=== PATIENT | female | born 1965 | race Caucasian/White ===

== ENCOUNTER 2024-03-10 17:43 | Emergency (ER) | payer OTHER ==
[~2024-03-10] VITALS: Ht 167.6 cm; Wt 145.2 kg
[2024-03-10 18:31] LABS: BASOPHILS PERCENT AUTO 1 % (0-2); EOSINOPHILS ABSOLUTE AUTO 0.29 K/mm3 (0.00-0.68); EOSINOPHILS PERCENT AUTO 3 % (0-6); Hematocrit 34.4 % (33.0-51.0); Hemoglobin 11.5 g/dL (11.5-16.0); IMMATURE GRAN ABSOLUTE AUTO 0.05 K/mm3 (0.00-0.10); IMMATURE GRAN PERCENT AUTO 0 % (0-1); LYMPHOCYTES ABSOLUTE AUTO 2.48 K/mm3 (0.84-5.20); LYMPHOCYTES PERCENT AUTO 22 % (21-46); MONOCYTES ABSOLUTE AUTO 0.92 K/mm3 (0.16-1.47); MONOCYTES PERCENT AUTO 8 % (4-13); Mean Corpuscular HGB 33.4 pg (26.0-34.0); Mean Corpuscular HGB Conc 33.4 g/dL (31.5-36.5); Mean Corpuscular Volume 100 fL (80-100); Mean Platelet Volume 9.7 fL (9.1-12.4); NEUTROPHILS ABSOLUTE AUTO 7.58 K/mm3 (1.96-9.15); NEUTROPHILS PERCENT AUTO 66 % (41-73); Platelet Count 380 K/mm3 (150-400); RDW Coefficient Variation 14.5 % (11.7-14.2); RDW Standard Deviation 52.7 fL (35.1-46.3); Red Blood Cell Count 3.44 M/mm3 (3.80-5.20); White Blood Cell Count 11.42 K/mm3 (4.00-11.30)
[2024-03-10 19:11] LABS: Source, Urine Clean Catch
[2024-03-10 19:14] LABS: Appearance, Urine Hazy (Clear); Blood, Urine 1+ (Neg); Color, Urine Amber (P-Yellow); Glucose Qualitative, Urine Neg (Neg); Ketones, Urine 1+ (Neg); Leukocyte Esterase, Urine 2+ (Neg); Nitrite, Urine Pos (Neg); Protein, Urine 2+ (Neg); Specific Gravity, Urine 1.015 (1.003-1.022); Urobilinogen, Urine 3+ (Normal)
[2024-03-10 19:21] LABS: Albumin, Blood 2.7 g/dL (3.4-5.0); Albumin/Globulin Ratio 0.5 (0.8-1.8); Bilirubin, Total 6.2 mg/dL (0.1-1.0); Bun/Creatinine Ratio 13.5 (12.0-20.0); Creatinine, Blood 0.81 mg/dL (0.40-1.00); Globulin, Blood 5.4 g/dL (2.2-4.0); Potassium, Blood 4.1 mmol/L (3.5-5.5); Total Protein, Blood 8.1 g/dL (6.4-8.2)
[2024-03-10 19:25] LABS: Bilirubin, Urine 3+ (Neg)
[2024-03-10 19:26] LABS: Amorphous Light (0-Heavy); Bacteria Many /hpf; Hyaline Casts 0-2 /lpf (0-2); Squamous Epithelial Cells Few /hpf (Few)
[2024-03-10] MEDS ORDERED: CefTRIAXone Sodium 2,000 MG in NS 50 ML IV ONE (23:20)
[2024-03-10] MEDS ORDERED: CEPH500 PO (23:22)
== END 2024-03-10 23:50 | disposition home or self-care (01) ==
LOC: ER 17:43
PROVIDERS: Student in an Organized Health Care Education/Training Program
DX: N39.0 Urinary tract infection, site not specified (principal); C24.9 Malignant neoplasm of biliary tract, unspecified
CPT/HCPCS: 80053; 81001; 85025; 87086; 93005; 93010; 96374; 99283-25; J0696

== ENCOUNTER 2025-01-22 09:58 | Emergency (ER) | payer OTHER ==
[~2025-01-22] VITALS: Ht 167.6 cm; Wt 127.0 kg
[~2025-01-22 09:58] MED LIST: CEPH500 PO
[2025-01-22] MEDS ORDERED: Ondansetron HCl 2 MG / ML 2ML Vial IV ONE (10:05)
[2025-01-22] MEDS ORDERED: NS 1,000 ML IV SCH (10:05)
[2025-01-22] MEDS ORDERED: HYDROmorphone HCl/Pf 1MG SYR IV PRN ×4 (10:20→22:35)
[2025-01-22 11:19] LABS: Alanine Aminotransfer (ALT/SGP 112.0 U/L (12-78); Albumin, Blood 2.9 g/dL (3.4-5.0); Albumin/Globulin Ratio 0.6 (0.8-1.8); Anion Gap 12.0 mmol/L (3-11); Aspartate Aminotrans (AST/SGOT 48.0 U/L (12-37); Bilirubin, Total 6.3 mg/dL (0.1-1.0); Blood Urea Nitrogen 22.0 mg/dL (8-24); CO2, Blood 22.0 mmol/L (21-32); Calcium, Blood 10.7 mg/dL (8.5-10.1); Chloride, Blood 104.0 mmol/L (98-108); Creatinine, Blood 0.9 mg/dL (0.40-1.00); Globulin, Blood 4.5 g/dL (2.2-4.0); Glucose, Blood 156.0 mg/dL (70-99); Potassium, Blood 3.5 mmol/L (3.5-5.5); Sodium, Blood 134.0 mmol/L (136-145); Total Protein, Blood 7.4 g/dL (6.4-8.2)
[2025-01-22 12:04] LABS: BASOPHILS ABSOLUTE AUTO 0.04 K/mm3 (0.00-0.23); BASOPHILS PERCENT AUTO 0 % (0-2); EOSINOPHILS ABSOLUTE AUTO 0.04 K/mm3 (0.00-0.68); EOSINOPHILS PERCENT AUTO 0 % (0-6); Hematocrit 33.3 % (33.0-51.0); Hemoglobin 10.7 g/dL (11.5-16.0); IMMATURE GRAN ABSOLUTE AUTO 0.47 K/mm3 (0.00-0.10); IMMATURE GRAN PERCENT AUTO 2 % (0-1); LYMPHOCYTES ABSOLUTE AUTO 3.44 K/mm3 (0.84-5.20); LYMPHOCYTES PERCENT AUTO 17 % (21-46); MONOCYTES ABSOLUTE AUTO 1.30 K/mm3 (0.16-1.47); MONOCYTES PERCENT AUTO 6 % (4-13); Mean Corpuscular HGB Conc 32.1 g/dL (31.5-36.5); Mean Corpuscular Volume 103 fL (80-100); NEUTROPHILS ABSOLUTE AUTO 15.16 K/mm3 (1.96-9.15); NEUTROPHILS PERCENT AUTO 74 % (41-73); NRBC ABSOLUTE 0.00 K/mm3 (0.00-0.02); NRBC Auto 0.0 /100 WBC (0.0-0.2); Platelet Count 334 K/mm3 (150-400); RDW Coefficient Variation 15.3 % (11.7-14.2); RDW Standard Deviation 57.7 fL (35.1-46.3)
[2025-01-22] MEDS ORDERED: MetroNIDAZOLE 500MG/NS 100 ml 100 ML IV ONE (12:30)
[2025-01-22] MEDS ORDERED: CefTRIAXone Sodium 2,000 MG in NS 100 ML IV ONE (12:30)
[2025-01-22 14:50] LABS: pH Blood Venous 7.30 (7.34-7.37)
[2025-01-22 17:45] LABS: Prothrombin Time Results 15.3 Sec (9.7-11.5)
[2025-01-22] MEDS ORDERED: Piperacillin/Tazobactam Sod 3.375 GM in NS 100 ML IV SCH (18:00)
[2025-01-22 22:24] LABS: Influenza A, PCR NEGATIVE (NEGATIVE); Influenza B, PCR NEGATIVE (NEGATIVE); Resp Syncytial Virus, PCR NEGATIVE (NEGATIVE); SARS-Cov-2 (COVID-19) PCR, MMC NEGATIVE (NEGATIVE)
[2025-01-22 23:14] VITALS: BP 172/100
[2025-01-22 23:25] VITALS: BP 172/100
[2025-01-22 23:31] VITALS: BP 172/100
[2025-01-22 23:36] VITALS: BP 172/100
[2025-01-23 02:18] VITALS: BP 172/100
== END 2025-01-23 01:27 | disposition short-term general hospital (02) ==
LOC: ER 09:58
PROVIDERS: Emergency Medicine
DX: K81.0 Acute cholecystitis (principal); K82.A1 Gangrene of gallbladder in cholecystitis; E87.1 Hypo-osmolality and hyponatremia; R79.89 Other specified abnormal findings of blood chemistry; R74.01 Elevation of levels of liver transaminase levels; Z59.89 Other problems related to housing and economic circumstances
CPT/HCPCS: 36415; 74177; 80053; 82330; 82803; 83605; 83690; 85025; 85610; 86850; 86900; 86901; 87040; 87637; 93005; 93010; 96361; 96365; 96366; 96367; 96375; 96376; 99285-25; J0696; J1171; J2405; J2543; J7030; Q9967

== ENCOUNTER 2025-03-03 21:37 | Inpatient (IN) | payer OTHER ==
[~2025-03-03] VITALS: Ht 170.2 cm; Wt 115.9 kg
[2025-03-03] MEDS ORDERED: HYDROmorphone HCl/Pf 1MG SYR IV PRN (23:35)
[2025-03-03] MEDS ORDERED: Ondansetron HCl 2 MG / ML 2ML Vial IV ONE (23:40)
[2025-03-03 23:55] LABS: BASOPHILS ABSOLUTE AUTO 0.04 K/mm3 (0.00-0.23); BASOPHILS PERCENT AUTO 0 % (0-2); EOSINOPHILS ABSOLUTE AUTO 0.04 K/mm3 (0.00-0.68); EOSINOPHILS PERCENT AUTO 0 % (0-6); Hematocrit 33.5 % (33.0-51.0); Hemoglobin 10.7 g/dL (11.5-16.0); IMMATURE GRAN ABSOLUTE AUTO 0.20 K/mm3 (0.00-0.10); IMMATURE GRAN PERCENT AUTO 2 % (0-1); LYMPHOCYTES ABSOLUTE AUTO 2.94 K/mm3 (0.84-5.20); LYMPHOCYTES PERCENT AUTO 24 % (21-46); MONOCYTES ABSOLUTE AUTO 1.04 K/mm3 (0.16-1.47); MONOCYTES PERCENT AUTO 9 % (4-13); Mean Corpuscular HGB Conc 31.9 g/dL (31.5-36.5); Mean Corpuscular Volume 103 fL (80-100); NEUTROPHILS ABSOLUTE AUTO 7.98 K/mm3 (1.96-9.15); NEUTROPHILS PERCENT AUTO 65 % (41-73); NRBC ABSOLUTE 0.00 K/mm3 (0.00-0.02); NRBC Auto 0.0 /100 WBC (0.0-0.2); Platelet Count 232 K/mm3 (150-400); RDW Coefficient Variation 16.2 % (11.7-14.2); RDW Standard Deviation 61.7 fL (35.1-46.3)
[2025-03-04 00:30] LABS: Alanine Aminotransfer (ALT/SGP 250.0 U/L (12-78); Albumin, Blood 2.4 g/dL (3.4-5.0); Albumin/Globulin Ratio 0.5 (0.8-1.8); Anion Gap 8.0 mmol/L (3-11); Aspartate Aminotrans (AST/SGOT 84.0 U/L (12-37); Bilirubin, Total 1.5 mg/dL (0.1-1.0); Blood Urea Nitrogen 26.0 mg/dL (8-24); CO2, Blood 27.0 mmol/L (21-32); Calcium, Blood 9.9 mg/dL (8.5-10.1); Chloride, Blood 107.0 mmol/L (98-108); Creatinine, Blood 0.76 mg/dL (0.40-1.00); Globulin, Blood 4.5 g/dL (2.2-4.0); Glucose, Blood 116.0 mg/dL (70-99); Potassium, Blood 4.3 mmol/L (3.5-5.5); Sodium, Blood 138.0 mmol/L (136-145); Total Protein, Blood 6.9 g/dL (6.4-8.2)
[2025-03-04] MEDS ORDERED: NS 1,000 ML IV SCH (01:30)
[2025-03-04] MEDS ORDERED: FLU VACC TS2025-26(6MOS UP)/PF 45 MCG/0.5 ML SYRINGE IM SCH (04:10)
[2025-03-04] MEDS ORDERED: Ondansetron HCl 2 MG / ML 2ML Vial IV PRN (04:15)
[2025-03-04] MEDS ORDERED: Naloxone HCl 0.4MG / ML 1ML Vial IV PRN (04:15)
[2025-03-04] MEDS ORDERED: HYDROmorphone HCl/Pf 1MG SYR IV PRN ×3 (04:15→09:30)
[2025-03-04] MEDS ORDERED: Piperacillin/Tazobactam Sod 3.375 GM in NS 100 ML IV SCH (04:25)
[2025-03-04 05:56] VITALS: BP 123/66
--- NOTE | 2025-03-04 06:28 | NUR ---
PATIENT IS A NEW ADMIT FROM THE ED. THREE PERSON TRANSFER FROM [facility] TO BED. BILIARY DRAIN PRESENT AND INTACT. NPO. ALERT ORIENTED AND BEDREST REPORTING BACK PAIN/SPASM. PAINFUL TO TURN ON ADMIT. IV DILAUDID 1 MG GIVEN PER EMAR WITH GOOD EFFECT. DENIES CHEST PAIN, SOB, AND N/V. ON ROOM AIR. REPORTS LIVES WITH HER PARENTS AND SON IN PARENTS HOUSE. SON IS CAREGIVER. [place]. ORIENTED TO ROOM AND CALL LIGHT SYSTEM. REPORTS WILL STAY AWAKE AT THIS TIME. WCTM.
[2025-03-04 07:37] VITALS: BP 132/67
[2025-03-04] MEDS ORDERED: CYCL10 PO (08:39)
[2025-03-04] MEDS ORDERED: ONDA4ODT MM (08:39)
[2025-03-04] MEDS ORDERED: LISI20 PO (08:39)
[2025-03-04] MEDS ORDERED: PROC5 PO (08:40)
[2025-03-04] MEDS ORDERED: NS 250 ML IV PRN (08:40)
[2025-03-04] MEDS ORDERED: DECADRON4 M1 PO (08:41)
[2025-03-04] MEDS ORDERED: LOPE2C PO (08:42)
[2025-03-04] MEDS ORDERED: OXYC5 PO (08:45)
[2025-03-04] MEDS ORDERED: METO100ER PO (08:45)
[2025-03-04] MEDS ORDERED: ELIQUIS5 M2 PO (08:45)
[2025-03-04] MEDS ORDERED: FAMO20 PO (08:46)
[2025-03-04] MEDS ORDERED: HYDHCL25 PO (08:46)
[2025-03-04] MEDS ORDERED: ACET500 PO (08:47)
[2025-03-04] MEDS ORDERED: NARCAN4 M1 (08:47)
[2025-03-04] MEDS ORDERED: MAGNESIUM OXID500 MG PO (08:47)
[2025-03-04] MEDS ORDERED: MULTI-VITAMIN1 EAC2 PO (08:47)
[2025-03-04] MEDS ORDERED: LEVOTHYROXINE175 MC9 PO (08:48)
[2025-03-04] MEDS ORDERED: ZYRTEC10 M1 PO (08:48)
[2025-03-04] MEDS ORDERED: Enoxaparin 40 MG/0.4 ML SYR SC SCH (09:00)
[2025-03-04] MEDS ORDERED: Lactobacil 2-S.Thermo-Bifido 1 1 Cap PO SCH (09:00)
[2025-03-04 14:52] VITALS: BP 107/72
--- NOTE | 2025-03-04 18:43 | NUR ---
SHIFT SUMMARY PT A&OX4, VSS, BEDRIDDEN AT THIS TIME, TOLERATING PO, VOIDING, AND PAIN MANAGED PER EMAR. R BILIARY IN PLACE AND PATENT. IV ABX INFUSED PER ORDER. COVID SWAB COMPLETE. PLAN FOR TRANSFER TO [facility]. NO OTHER ACUTE CHANGES. CALL LIGHT WITHIN REACH AND PT ABLE TO MAKE NEEDS KNOWN.
[2025-03-04 19:19] VITALS: BP 155/80
[2025-03-04 19:37] LABS: CORONAVIRUS COVID-19 AG Negative (NEGATIVE)
[2025-03-04 21:05] VITALS: BP 155/80
--- NOTE | 2025-03-04 21:59 | NUR ---
SHIFT SUMMARY/TRANSFER NOTE: REPORT GIVEN BY TELEPHONE TO ANTONIO AT [facility]. PATIENT WILL BE MEDICATED FOR PAIN. NO OTHER CONCERNS FOR TRANSFER AT THIS TIME.
== END 2025-03-04 23:00 | disposition short-term general hospital (02) | DRG 442 ==
LOC: ER 21:37 → MEDS 21:38 → ERHOLD 21:38 → MEDS 03-04 05:22
PROVIDERS: Emergency Medicine; Internal Medicine; ADMIT Student in an Organized Health Care Education/Training Program
DX: K75.0 Abscess of liver (principal); C24.9 Malignant neoplasm of biliary tract, unspecified; C79.51 Secondary malignant neoplasm of bone; E03.9 Hypothyroidism, unspecified; I10 Essential (primary) hypertension; M62.830 Muscle spasm of back; E86.0 Dehydration; Z87.19 Personal history of other diseases of the digestive system; Z98.890 Other specified postprocedural states; Z85.05 Personal history of malignant neoplasm of liver; Z85.830 Personal history of malignant neoplasm of bone; Z85.89 Personal history of malignant neoplasm of other organs and systems; Z23 Encounter for immunization
CPT/HCPCS: 74177; 80053; 85025; 87426-QW; 96361; 96365; 96375; 96376; 99285-25; A9270; G0378; J1171; J1650; J2405; J2543; J7030; J7050; Q9967